=== PATIENT | female | born 1970 | race Caucasian/White ===

== ENCOUNTER 2018-03-10 19:09 | Emergency (ER) | payer OTHER, BC ==
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
[2018-03-10 20:22] LABS: ABSOLUTE BASOPHILS # (AUTO) 0.1 10^3/uL (0.0-0.2); ABSOLUTE EOSINOPHILS # (AUTO) 0.3 10^3/uL (0.0-0.6); ABSOLUTE LYMPHOCYTES (AUTO) 3.8 10^3/uL (0.5-4.7); ABSOLUTE MONOCYTES (AUTO) 0.7 10^3/uL (0.1-1.4); ABSOLUTE NEUT (AUTO) 7.2 10^3/uL (1.7-8.2); EOSINOPHILS % (AUTO) 2.1 % (0-6); HEMOGLOBIN 14.3 g/dL (12.0-15.5); LYMPHOCYTES % (AUTO) 31.7 % (13-45); MEAN CORPUSCULAR HEMOGLOBIN 30.2 pg (27.0-33.4); MEAN CORPUSCULAR HGB CONC 34.9 g/dL (32.0-36.0); MEAN CORPUSCULAR VOLUME 87 fl (80-97); MONOCYTES % (AUTO) 5.5 % (3-13); PLATELET COUNT 330 10^3/uL (150-450); RED BLOOD COUNT 4.75 10^6/uL (3.72-5.28); RED CELL DISTRIBUTION WIDTH 13.2 % (11.5-14.0); SEGMENTED NEUTROPHILS % (AUTO) 59.7 % (42-78); TOTAL CELLS COUNTED % (AUTO) 100 %
[2018-03-10 20:42] LABS: ALANINE AMINOTRANSFERASE 18 U/L (9-52); ALBUMIN 4.1 g/dL (3.5-5.0); ALKALINE PHOSPHATASE 44 U/L (38-126); ANION GAP 11 (5-19); ASPARTATE AMINO TRANSFERASE 17 U/L (14-36); BILIRUBIN,DIRECT 0.4 mg/dL (0.0-0.4); BILIRUBIN,TOTAL 0.6 mg/dL (0.2-1.3); BLOOD UREA NITROGEN 12 mg/dL (7-20); CALCIUM 7.4 mg/dL (8.4-10.2); CARBON DIOXIDE 25 mmol/L (22-30); CHLORIDE 104 mmol/L (98-107); GLUCOSE 122 mg/dL (75-110); POTASSIUM 3.8 mmol/L (3.6-5.0); SODIUM 139.7 mmol/L (137-145); TOTAL PROTEIN 7.3 g/dL (6.3-8.2)
[2018-03-10] MEDS ORDERED: CALCIUM GLUCONATE 1000 MG/10 ML INJ IV ONE (20:44)
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
[2018-03-10 22:28] VITALS: BP 108/79
--- NOTE | 2018-03-11 12:43 | EKG REPORT ---
SEVERITY:- ABNORMAL ECG - SINUS RHYTHM BORDERLINE R WAVE PROGRESSION, ANTERIOR LEADS BORDERLINE T ABNORMALITIES, ANTERIOR LEADS BORDERLINE PROLONGED QT INTERVAL : Confirmed by: Luh Milton MD 11-Mar-2018 12:42:10
== END 2018-03-10 22:29 | disposition home or self-care (01) ==
LOC: ER 19:09
DX: R00.2 Palpitations (principal); E83.51 Hypocalcemia; X37.0XXA Hurricane, initial encounter; Z88.0 Allergy status to penicillin
CPT/HCPCS: 93005; 99285; 96374; 36415; 83735; 85025; 80053; 82330; 93010; J0610

== ENCOUNTER 2018-12-24 18:09 | Emergency (ER) | payer OTHER, BC ==
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
[2018-12-24 22:08] VITALS: BP 112/74
--- NOTE | 2018-12-24 23:57 | EKG REPORT ---
SEVERITY:- BORDERLINE ECG - SINUS RHYTHM BORDERLINE R WAVE PROGRESSION, ANTERIOR LEADS : Confirmed by: Zohra De Jesus 24-Dec-2018 23:56:37
== END 2018-12-24 21:35 | disposition home or self-care (01) ==
LOC: ER 18:09
DX: M25.512 Pain in left shoulder (principal); M79.602 Pain in left arm; R55 Syncope and collapse; V47.5XXA Car driver injured in collision with fixed or stationary object in traffic accident, initial encounter; I10 Essential (primary) hypertension; E83.51 Hypocalcemia; E03.9 Hypothyroidism, unspecified; F17.200 Nicotine dependence, unspecified, uncomplicated; Z88.0 Allergy status to penicillin
CPT/HCPCS: 93005; 99284; 73030; 71250; 93010; L3650

== ENCOUNTER 2019-07-19 09:35 | Emergency (ER) | payer OTHER, BC ==
--- NOTE | 2019-07-19 10:16 | ER Document Report ---
ED Medical Screen (RME) - General Chief Complaint: Numbness of Face Stated Complaint: FACIAL TINGLING/LEGS TINGLING Time Seen by Provider: 07/19/19 10:11 Primary Care Provider: ALEJANDRO BERTRAND PA [Primary Care Provider] - Follow up as needed Mode of Arrival: Ambulatory Information source: Patient Notes: 49-year-old female presents to ED for complaint of elevated blood pressure and numbness to her face arms and legs. She states it is both sides of her face arms and legs for 4 days. She states her blood pressure is usually slightly elevated and she takes lisinopril 10 mg daily today her blood pressure is 181/99 I will recheck her blood pressure now. Patient states she does have a history of hypocalcemia due to no parathyroids due to thyroidectomy. Manual blood pressure is 158/78. I have greeted and performed a rapid initial assessment of this patient. A comprehensive ED assessment and evaluation of the patient, analysis of test results and completion of medical decision making process will be conducted by an additional ED providers. TRAVEL OUTSIDE OF THE [place] IN LAST 30 DAYS: No - Related Data Allergies/Adverse Reactions: iodine Allergy (Verified 02/20/16 23:14) Penicillins Allergy (Verified 02/20/16 23:14) Past Medical History Renal/ Medical History: Denies: Hx Peritoneal Dialysis Past Surgical History: Reports: Hx Thyroid Surgery Physical Exam - Vital signs Vitals: Temp Pulse Resp BP Pulse Ox 97.8 F 90 16 181/99 H 97 07/19/19 09:40 07/19/19 09:40 07/19/19 09:40 07/19/19 09:40 07/19/19 09:40 Course - Vital Signs Vital signs: Temp Pulse Resp BP Pulse Ox 97.8 F 90 16 181/99 H 97 07/19/19 09:40 07/19/19 09:40 07/19/19 09:40 07/19/19 09:40 07/19/19 09:40 Doctor's Discharge - Discharge Referrals: ALEJANDRO BERTRAND PA [Primary Care Provider] - Follow up as needed
[2019-07-19 10:49] LABS: ABSOLUTE BASOPHILS # (AUTO) 0.1 10^3/uL (0.0-0.2); ABSOLUTE EOSINOPHILS # (AUTO) 0.3 10^3/uL (0.0-0.6); ABSOLUTE LYMPHOCYTES (AUTO) 2.5 10^3/uL (0.5-4.7); ABSOLUTE MONOCYTES (AUTO) 0.5 10^3/uL (0.1-1.4); ABSOLUTE NEUT (AUTO) 4.9 10^3/uL (1.7-8.2); BASOPHILS % (AUTO) 1.1 % (0-2); EOSINOPHILS % (AUTO) 3.6 % (0-6); HEMATOCRIT 43.4 % (36.0-47.0); HEMOGLOBIN 14.9 g/dL (12.0-15.5); LYMPHOCYTES % (AUTO) 30.6 % (13-45); MEAN CORPUSCULAR HEMOGLOBIN 30.8 pg (27.0-33.4); MEAN CORPUSCULAR HGB CONC 34.4 g/dL (32.0-36.0); MEAN CORPUSCULAR VOLUME 90 fl (80-97); MONOCYTES % (AUTO) 5.5 % (3-13); PLATELET COUNT 313 10^3/uL (150-450); RED BLOOD COUNT 4.84 10^6/uL (3.72-5.28); RED CELL DISTRIBUTION WIDTH 13.3 % (11.5-14.0); SEGMENTED NEUTROPHILS % (AUTO) 59.2 % (42-78); TOTAL CELLS COUNTED % (AUTO) 100 %; WHITE BLOOD COUNT 8.2 10^3/uL (4.0-10.5)
[2019-07-19 11:04] LABS: APPEARANCE,URINE SLIGHTLY-CLOUDY; BILIRUBIN,URINE NEGATIVE (NEGATIVE); COLOR,URINE YELLOW; GLUCOSE, URINE NEGATIVE (NEGATIVE); KETONES,URINE NEGATIVE (NEGATIVE); PROTEIN,URINE NEGATIVE (NEGATIVE); URINE SPECIFIC GRAVITY 1.011; UROBILINOGEN,URINE NEGATIVE mg/dL (<2.0)
[2019-07-19 11:08] LABS: ALBUMIN 4.3 g/dL (3.5-5.0); ALKALINE PHOSPHATASE 45 U/L (38-126); ANION GAP 9 (5-19); ASPARTATE AMINO TRANSFERASE 19 U/L (14-36); BILIRUBIN,DIRECT 0.2 mg/dL (0.0-0.4); BILIRUBIN,TOTAL 0.7 mg/dL (0.2-1.3); BLOOD UREA NITROGEN 12 mg/dL (7-20); CALCIUM 7.7 mg/dL (8.4-10.2); CARBON DIOXIDE 30 mmol/L (22-30); CHLORIDE 102 mmol/L (98-107); GLUCOSE 96 mg/dL (75-110); PHOSPHORUS 5.1 mg/dL (2.5-4.5); TOTAL PROTEIN 7.8 g/dL (6.3-8.2)
--- NOTE | 2019-07-19 13:08 | ER Document Report ---
ED General - General Chief Complaint: Blood Pressure Problem Stated Complaint: FACIAL TINGLING/LEGS TINGLING Time Seen by Provider: 07/19/19 10:11 Primary Care Provider: ALEJANDRO BERTRAND PA [Primary Care Provider] - Follow up as needed Mode of Arrival: Ambulatory Notes: Patient is a 49-year-old female with a history of thyroidectomy and hypocalcemia and parathyroid dysfunction who presents to the emergency department with a chief complaint of numbness and tingling. Patient reports for about 4 days she has had intermittent numbness and tingling to her face, arms and legs. Patient reports this does occur intermittently and on both sides. Patient reports when she has symptoms like this her calcium is low. Patient reports that the only thing she takes for calcium is at times. Patient reports that she was on an injection that was taken off of the market back in April. Patient also reports that she stopped taking her Calcitrol. Patient reports since stopping the injections back in April she has not followed up with her vault manager. She was being followed by Dr. Garcias at [facility]. Patient denies chest pain or palpitations. Patient also has a history of high blood pressure when she takes lisinopril 10 mg daily. Patient reports she was unaware that she was having elevated blood pressure until she came to the emergency department. Patient denies headache or dizziness. TRAVEL OUTSIDE OF THE [place] IN LAST 30 DAYS: No - Related Data Allergies/Adverse Reactions: iodine Allergy (Verified 02/20/16 23:14) Penicillins Allergy (Verified 02/20/16 23:14) Home Medications: Levothyroxin. Gabapentin Past Medical History - General Information source: Patient - Social History Smoking Status: Unknown if Ever Smoked Lives with: Family Family History: Reviewed & Not Pertinent Patient has suicidal ideation: No Patient has homicidal ideation: No - Past Medical History Cardiac Medical History: Reports: Hx Hypertension Pulmonary Medical History: Reports: None EENT Medical History: Reports: None Neurological Medical History: Reports: None Endocrine Medical History: Reports: None Renal/ Medical History: Reports: None. Denies: Hx Peritoneal Dialysis Malignancy Medical History: Reports: None GI Medical History: Reports: None Musculoskeletal Medical History: Reports None Skin Medical History: Reports None Psychiatric Medical History: Reports: None Traumatic Medical History: Reports: None Infectious Medical History: Reports: None Past Surgical History: Reports: Hx Thyroid Surgery Review of Systems - Review of Systems Constitutional: No symptoms reported EENT: No symptoms reported Cardiovascular: No symptoms reported Respiratory: No symptoms reported Gastrointestinal: No symptoms reported Genitourinary: No symptoms reported Female Genitourinary: No symptoms reported Musculoskeletal: No symptoms reported Skin: No symptoms reported Hematologic/Lymphatic: No symptoms reported Neurological/Psychological: See HPI Physical Exam - Vital signs Vitals: Temp Pulse Resp BP Pulse Ox 97.8 F 90 16 181/99 H 97 07/19/19 09:40 07/19/19 09:40 07/19/19 09:40 07/19/19 09:40 07/19/19 09:40 Interpretation: Hypertensive - Notes Notes: GENERAL: Well-appearing, well-nourished and in no acute distress. HEAD: Atraumatic, normocephalic. EYES: Pupils equal round and reactive to light, extraocular movements intact, sclera anicteric, conjunctiva are normal. ENT: Nares patent, oropharynx clear without exudates. Moist mucous membranes. NECK: Normal range of motion, supple without lymphadenopathy or JVD. LUNGS: Breath sounds clear to auscultation bilaterally and equal. No wheezes rales or rhonchi. HEART: Regular rate and rhythm without murmurs, rubs or gallops. ABDOMEN: Soft, nontender, normoactive bowel sounds. No guarding, no rebound. No masses appreciated. BACK: No cervical, thoracic, lumbar midline tenderness. No saddle anesthesia, normal distal neurovascular exam. GENITOURINARY: Deferred. EXTREMITIES: Normal range of motion, no pitting or edema. No clubbing or cyanosis. NEUROLOGICAL: Cranial nerves II through XII grossly intact. Normal speech, normal gait. PSYCH: Normal mood, normal affect. SKIN: Warm, Dry, normal turgor, no rashes or lesions noted. Course - Re-evaluation Re-evalutation: 07/19/19 13:05 Upon initial evaluation patient resting comfortably on stretcher. Patient reports that at this time the numbness has subsided. Patient continues to state that this is intermittent in nature this is usually presents when her calcium is low. Patient denies chest pain or palpitations. 07/19/19 14:09 I did speak with Dr. Locke to consult regarding the low calcium, he does recommend giving the patient 1 gram of calcium gluconate and patient to continue her regimen of Tums which is regimen that what was given to the patient by her vault manager. I did recommend the patient call her vault manager to make a follow-up appointment as she has been on multiple medications in the past and has either had side effects or the medications. Patient is asymptomatic at this time. Patient in agreement with discharge plan. EKG was unremarkable. - Vital Signs Vital signs: Temp Pulse Resp BP Pulse Ox 97.8 F 90 16 158/78 H 97 07/19/19 09:40 07/19/19 09:40 07/19/19 09:40 07/19/19 10:16 07/19/19 09:40 - Laboratory Result Diagrams: 07/19/19 10:20 07/19/19 10:20 Laboratory results interpreted by me: 07/19/19 10:20 Calcium 7.7 L Phosphorus 5.1 H - EKG Interpretation by Me Additional EKG results interpreted by me: 07/19/19 14:00 Patient is EKG shows a sinus rhythm with a heart rate of 56. Patient's ID interval is 180, QT is 440 and QTc is 425. Patient has a normal axis deviation. Patient does have T wave inversion in lead III which is consistent with old EKG. This is not present in consecutive leads. No ST segment changes in multiple leads. Discharge - Discharge Clinical Impression: Hypocalcemia, Parathyroid dysfunction Condition: Stable Disposition: HOME, SELF-CARE Additional Instructions: Today was seen in the emergency department for numbness and tingling. When you arrived to the emergency department your blood pressure was elevated. It was also found that your calcium level was 7.7. We did give you IV calcium to help elevate this level. Your blood pressure has come down on its own without intervention. At time of discharge you were asymptomatic. Continue taking a regimen of Tums. Please follow-up with your vault manager, call them today to make a follow-up appointment to see what other options you have in regards to your medication regimen. Please return to the emergency department if you develop chest pain, palpitations, numbness and tingling or return of your symptoms. Forms: Return to Work Referrals: ALEJANDRO BERTRAND PA [Primary Care Provider] - Follow up as needed
[2019-07-19] MEDS ORDERED: CALCIUM GLUCONATE 1000 MG/10 ML INJ IV ONE (14:03)
[2019-07-19 16:43] VITALS: BP 130/77
--- NOTE | 2019-07-20 13:06 | EKG REPORT ---
SEVERITY:- BORDERLINE ECG - SINUS RHYTHM BORDERLINE R WAVE PROGRESSION, ANTERIOR LEADS : Confirmed by: Zohra De Jesus 20-Jul-2019 13:04:58
== END 2019-07-19 16:25 | disposition home or self-care (01) ==
LOC: ER 09:35
DX: E83.51 Hypocalcemia (principal); I10 Essential (primary) hypertension; Z88.0 Allergy status to penicillin
CPT/HCPCS: 99284; 96374; 36415; 83735; 84100; 85025; 80053; 81001; 93005; 93010; J0610